=== PATIENT | male | born 1960 | race Caucasian/White ===

== ENCOUNTER 2017-04-20 17:58 | Observation (INO) | payer MEDICAID, OTHER ==
[~2017-04-20] VITALS: Ht 177.8 cm; Wt 82.2 kg
[2017-04-20 18:18] VITALS: BP 165/90; PULSE 92; RESP 18; TEMP 98.3; O2SAT 94
[2017-04-20] MEDS ORDERED: VERA80TA PO (18:23)
[2017-04-20] MEDS ORDERED: FENO50TA PO (18:28)
[2017-04-20] MEDS ORDERED: SODIUM CHLORIDE 0.9% FLUSH 10 ML FLUSH IVF PRN (18:30)
[2017-04-20 19:02] VITALS: RESP 18; O2SAT 94
--- NOTE | 2017-04-20 19:04 | PD ---
Physical Exam Narrative General: The patient is a well-developed well-nourished male in no acute distress. Head and Neck exam: Head is normocephalic atraumatic. Eyes: EOMI, pupils are equal round and reactive to light. Nose: Midline septum with pink mucous membranes Mouth: Dentition unremarkable. Moist mucus membranes. Posterior oropharynx is not erythematous. No tonsillar hypertrophy. Uvula midline. Airway patent. Neck: No palpable lymphadenopathy. No nuchal rigidity. No thyromegaly. Cardiovascular: Sinus tachycardia in the low 100s without murmurs, gallops, or rubs. No pulse deficit to the extremities and simultaneous auscultation and palpation of his radial artery. Lungs: Clear to auscultation bilaterally. No wheezes, rhonchi, or rales. Abdomen: Soft, without tenderness to palpation in all 4 quadrants of the abdomen. No guarding, rebound, or rigidity. Normal bowel sounds are audible. No tenderness on palpation of McBurney's point. Negative [place] sign. Extremities: No clubbing, cyanosis, or edema. 2+ pulses in all 4 extremities. The patient reports an area of interest, the left proximal humerus having tenderness and pain with any attempts at range of motion. There is no crepitus or deformity noted. The patient has no other pain to the upper extremity. No loss of elbow range of motion or discomfort associated with this. No wrist discomfort. The patient has intact sensation over all fingertips. Less than 3 second capillary refill. The patient on examination of the pelvis reports tenderness on palpation of the left lateral pelvis. He reports that he did fall on his left side. On examination of the left leg, the patient reports having tenderness along the left quadriceps. There is no deformity, step-off or crepitus. The patient is able to weight-bear, however he is not able to ambulate. Back: No spinous process tenderness to palpation. No costovertebral angle tenderness to palpation. Neurologic Exam: Cranial nerves 2-12 were intact on exam. Strength is 5/5 in all 4 extremities. No sensory deficits noted. Skin Exam: No rash noted. The patient has abrasions in various stages of healing. Data Data Last Documented VS Vital Signs Date Time Temp Pulse Resp B/P Pulse Ox O2 Delivery O2 Flow Rate FiO2 04/20/17 19:39 88 16 162/88 94 Nasal Cannula 2 04/20/17 18:18 98.3 Orders Humerus (Min 2vws) (04/20/17 ) Electrocardiogram (04/20/17 18:30) Ckmb (Isoenzyme) Profile (04/20/17 18:30) Complete Blood Count With Diff (04/20/17 18:30) Comprehensive Metabolic Panel (04/20/17 18:30) Prothrombin Time / Inr (Pt) (04/20/17 18:30) Act Partial Throm Time (Ptt) (04/20/17 18:30) Troponin I (04/20/17 18:30) Chest, Single Ap (04/20/17 18:30) Ecg Monitoring (04/20/17 18:30) Iv Access Insert/Monitor (04/20/17 18:30) Oximetry (04/20/17 18:30) Oxygen Administration (04/20/17 18:30) Sodium Chloride 0.9% Flush (Ns Flush) (04/20/17 18:30) Shoulder, Limited(2vws) (04/20/17 ) Ct Brain W/O Iv Contrast(Rout) (04/20/17 19:12) Pelvis, Ap Only (Routine) (04/20/17 19:12) Ct Cerv Spine W/O Contrast (04/20/17 ) Sodium Chlor 0.9% 1000 Ml Inj (Ns 1000 M (04/20/17 19:30) Thiamine Inj (Thiamine Inj) (04/20/17 19:30) CKMB (04/20/17 18:30) CKMB% (04/20/17 18:30) Ice/Cold Pack (04/20/17 20:12) Splint Or Brace Apply/Monitor (04/20/17 20:12) Blood Glucose (04/20/17 20:19) Acetamin-Hydrocod 325-5 Mg (Byron 5-325 (04/20/17 20:30) Oral Rehydration (04/20/17 20:24) Diet As Tolerated (04/20/17 20:44) Admit Order (Ed Use Only) (04/20/17 21:43) Labs Laboratory Tests Test 04/20/17 18:30 White Blood Count 9.1 TH/MM3 Red Blood Count 4.07 MIL/MM3 Hemoglobin 14.3 GM/DL Hematocrit 41.5 % Mean Corpuscular Volume 102.2 FL Mean Corpuscular Hemoglobin 35.2 PG Mean Corpuscular Hemoglobin 34.5 % Concent Red Cell Distribution Width 13.5 % Platelet Count 164 TH/MM3 Mean Platelet Volume 7.2 FL Neutrophils (%) (Auto) 61.0 % Lymphocytes (%) (Auto) 18.3 % Monocytes (%) (Auto) 19.6 % Eosinophils (%) (Auto) 0.1 % Basophils (%) (Auto) 1.0 % Neutrophils # (Auto) 5.5 TH/MM3 Lymphocytes # (Auto) 1.7 TH/MM3 Monocytes # (Auto) 1.8 TH/MM3 Eosinophils # (Auto) 0.0 TH/MM3 Basophils # (Auto) 0.1 TH/MM3 CBC Comment DIFF FINAL Differential Comment Prothrombin Time 12.3 SEC Prothromb Time International 1.1 RATIO Ratio Activated Partial 26.6 SEC Thromboplast Time Sodium Level 136 MEQ/L Potassium Level 3.8 MEQ/L Chloride Level 101 MEQ/L Carbon Dioxide Level 19.8 MEQ/L Anion Gap 15 MEQ/L Blood Urea Nitrogen 8 MG/DL Creatinine 0.71 MG/DL Estimat Glomerular Filtration 114 ML/MIN Rate Random Glucose 66 MG/DL Calcium Level 8.5 MG/DL Total Bilirubin 1.2 MG/DL Aspartate Amino Transf 123 U/L (AST/SGOT) Alanine Aminotransferase 68 U/L (ALT/SGPT) Alkaline Phosphatase 100 U/L Total Creatine Kinase 443 U/L Creatine Kinase MB 2.0 NG/ML Creatine Kinase MB % 0.5 % Troponin I LESS THAN 0.02 NG/ML Total Protein 7.6 GM/DL Albumin 3.6 GM/DL [facility] Medical Record Reviewed: Yes Supervised Visit with KAYE: No Interpretation(s) Last Impressions Pelvis X-Ray 04/20/171911 Signed Impressions: Service Date/Time: Thursday, April 20, 2017 19:20 - CONCLUSION: No definite fracture is seen for technique. Phuc Waters MD Head CT 04/20/171911 Signed Impressions: Service Date/Time: Thursday, April 20, 2017 19:42 - CONCLUSION: Unremarkable study. Phuc Waters MD Chest X-Ray 04/20/171829 Signed Impressions: Service Date/Time: Thursday, April 20, 2017 18:49 - CONCLUSION: No acute cardiopulmonary disease. Phuc Waters MD Shoulder X-Ray 04/20/17 0000 Signed Impressions: Service Date/Time: Thursday, April 20, 2017 18:37 - CONCLUSION: Left proximal humeral fracture per Phuc Waters MD Humerus X-Ray 04/20/17 0000 Signed Impressions: Service Date/Time: Thursday, April 20, 2017 18:44 - CONCLUSION: Left proximal humeral fracture. Phuc Waters MD Cervical Spine CT 04/20/17 0000 Signed Impressions: Service Date/Time: Thursday, April 20, 2017 19:42 - CONCLUSION: Slight neural foramina compromise at multiple levels and lateral recess compromise bilaterally C3-C4 without any significant thecal sac stenosis. Phuc Waters MD Narrative Course During the course of the patients emergency department visit, the patients history, examination, and differential diagnosis were reviewed with the patient. The patient had IV access obtained and blood work sent for analysis. The patient's case was checked out to me by Dr. Corona, at the conclusion of his shift. Please review his complete history and physical. The patient reports a history of falling yesterday. He reports that he was unable to get up. He reports that he has a history of prior weakness to his left upper and left lower extremity that he reports is related to atrophy, however he is unsure why he has atrophy on the left side. The patient reports that he sometimes uses a cane for stability. He reports that he had too many alcoholic beverages yesterday and fell to the ground. He reports that he found outside by the neighbor who helped him to get inside. The patient's main complaint at this time is left shoulder pain. The patient had an ECG done on arrival that shows a sinus rhythm of 87, QRS duration is 94 ms, QTC [address] segment elevation or depression, T waves are inverted in lead 3. The patients laboratory studies were reviewed and remarkable for a white count of 9.1, hemoglobin 14.3, platelets 164 with 19.6 monocytes. CMP is remarkable for CO2 of 19.8, glucose 66, AST 123, total bilirubin 1.2, CPK 443 with an MB percent is 0.5, troponin I less than 0.02, PT 12.3, INR 1.1, PTT 26.6. Regarding the patient's blood sugar of 66 on his blood work this will be rechecked. The patient is currently without symptoms. The repeat blood sugar was noted to be low at 55. The patient will be given orange shoes and crackers. The patient reports that he has not been eating today related to the fall and his left shoulder pain. The patient's blood sugar will be rechecked. The patient was provided a liter of normal saline, thiamine 100 mg IV. The patient was given Lortab 5 mg by mouth 1 for pain. Radiology studies were reviewed and remarkable for a CT scan of the brain that showed no acute abnormality. CT scan of the C-spine with degenerative changes noted, slight neural foramina compromise at multiple levels on lateral recess compromise bilaterally at C3-C4 without any significant thecal sac stenosis. Chest x-ray, pelvis x-ray showed no acute abnormality. Left shoulder x-ray, left humerus x-ray reveals a proximal left humerus fracture. The patient was placed in a sling and swath. The patient had an ice pack applied. Regarding the patient's left proximal humerus fracture he was given a mandatory follow-up to the [facility] system with orthopedic physician on-call as he reports being uninsured. Later, the patient was able to identify who his insurance was and that his primary care doctor was Dr. Angel Dunbar. Therefore the mandatory follow-up will be canceled. The patient's repeat blood sugar after eating and drinking was 87. The patient attempted to ambulate, the patient reports that he is unable to ambulate due to pain in his left quadriceps muscle. There is no deformity, step-off or crepitus. He reports having chronic problems with his left leg. The patient reports that it is worse now and he is unable to care for himself. A call was then placed out to the hospitalist service regarding admission. X-ray of the left femur reveals an intact total hip prosthesis for technique, possible bone infarcts in the distal femur or proximal tibia. No other acute abnormality. The patient will be admitted to the hospital for his inability to ambulate and for physical therapy. The patients results were discussed with the patient, including the plan of care. I explained that further testing and/ or monitoring is indicated based on the patients history, examination, and/ or laboratory findings. Therefore, I recommended admission for additional evaluation. The patient expressed understanding and was agreeable with this plan. The patient was admitted to the hospital in stable condition and sent to a bed under the care of the [facility] Hospitalist service. Physician Communication Physician Communication The patient's case was discussed with Dr. Goodwin who did agree to admit the patient for further evaluation and treatment at this time for Diagnosis Primary Impression: Fall Qualified Code: W19.XXXA - Fall, initial encounter Additional Impressions: Closed fracture of left proximal humerus Qualified Code: S42.202A - Closed fracture of proximal end of left humerus, unspecified fracture morphology, initial encounter Unable to ambulate Hypoglycemia Admitting Information Admitting Physician Requests: Observation Referrals: [facility] 3 days Patient Assistance Program 3 days Patient Instructions: General Instructions, Proximal Humerus Fracture (ED) Rhonda Ramirez MD Apr 20, 2017 19:04
[2017-04-20 19:09] LABS: AUTOMATED NEUTROPHIL # 5.5 TH/MM3 (1.8-7.7); BASOPHIL # 0.1 TH/MM3 (0-0.2); EOSINOPHIL % 0.1 % (0.0-4.0); HEMATOCRIT 41.5 % (39.0-51.0); HEMO FLAGS DIFF FINAL; LYMPH % 18.3 % (9.0-44.0); LYMPHOCYTE # 1.7 TH/MM3 (1.0-4.8); MEAN CELL VOLUME 102.2 FL (80.0-100.0); MEAN CORPUSCULAR HEMOGLOBIN 35.2 PG (27.0-34.0); MEAN CORPUSCULAR HGB CONC 34.5 % (32.0-36.0); MONO % 19.6 % (0.0-8.0); PLATELET COUNT 164 TH/MM3 (150-450); RED BLOOD COUNT 4.07 MIL/MM3 (4.50-5.90); RED CELL DISTRIBUTION WIDTH 13.5 % (11.6-17.2); WHITE BLOOD COUNT 9.1 TH/MM3 (4.0-11.0)
--- NOTE | 2017-04-20 19:13 | PD ---
HPI Chief Complaint: Pain: Acute or Chronic Time Seen by Provider: 19:03 Travel History International Travel<30 days: No Contact w/Intl Traveler<30days: No Traveled to known affect area: No History of Present Illness HPI Due to many beers" and he fell injuring his left humerus and shoulder. He states he was unable to get to his feet because he has generalized weakness after multiple orthopedic surgeries in the past. Denies any chest pain loss consciousness head injury neck injury. His only complaint is left shoulder. He arrives by EMS with a sling and swath in place and states got better after morphine was given in the field. [facility] Past Medical History Diabetes: No Hypertension: Yes Tetanus Vaccination: > 5 Years Influenza Vaccination: No Past Surgical History Appendectomy: Yes Coronary Artery Bypass Graft: Yes Social History Alcohol Use: Yes (4PACK/DAY) Tobacco Use: Yes (1/2 PPD) Substance Use: Yes (MARIJUANA) Allergies-Medications (Allergen,Severity, Reaction): Coded Allergies: No Known Allergies (Unverified , 04/20/17) Reported Meds & Prescriptions Reported Meds & Active Scripts Active Reported Tricor (Fenofibrate) 145 Mg Tab 145 Mg PO DAILY Takw with food. Verapamil (Verapamil HCl) 80 Mg Tab 80 Mg PO BID Review of Systems Except as stated in HPI: all other systems reviewed are Neg Physical Exam Narrative GENERAL: Well-developed well-nourished no apparent distress. SKIN: Focused skin assessment warm/dry. HEAD: Atraumatic. Normocephalic. EYES: Pupils equal and round. No scleral icterus. No injection or drainage. ENT: No nasal bleeding or discharge. Mucous membranes pink and moist. NECK: Trachea midline. No JVD. CARDIOVASCULAR: Regular rate and rhythm. No murmur appreciated. RESPIRATORY: No accessory muscle use. Clear to auscultation. Breath sounds equal bilaterally. GASTROINTESTINAL: Abdomen soft, non-tender, nondistended. Hepatic and splenic margins not palpable. MUSCULOSKELETAL: No midline CT or L-spine tenderness, pulse motor and sensory intact distally in all 4 extremities, there is some midshaft and distal humeral tenderness on the left. No gross deformity seen. Shoulders properly seated. NEUROLOGICAL: Awake and alert. No obvious cranial nerve deficits. Motor grossly within normal limits. Normal speech. PSYCHIATRIC: Appropriate mood and affect; insight and judgment normal. Data Data Last Documented VS Vital Signs Date Time Temp Pulse Resp B/P Pulse Ox O2 Delivery O2 Flow Rate FiO2 04/20/17 19:02 18 94 Room Air 04/20/17 18:23 99 04/20/17 18:18 98.3 165/90 Orders Humerus (Min 2vws) (04/20/17 ) Electrocardiogram (04/20/17 18:30) Ckmb (Isoenzyme) Profile (04/20/17 18:30) Complete Blood Count With Diff (04/20/17 18:30) Comprehensive Metabolic Panel (04/20/17 18:30) Prothrombin Time / Inr (Pt) (04/20/17 18:30) Act Partial Throm Time (Ptt) (04/20/17 18:30) Troponin I (04/20/17 18:30) Chest, Single Ap (04/20/17 18:30) Ecg Monitoring (04/20/17 18:30) Iv Access Insert/Monitor (04/20/17 18:30) Oximetry (04/20/17 18:30) Oxygen Administration (04/20/17 18:30) Sodium Chloride 0.9% Flush (Ns Flush) (04/20/17 18:30) Shoulder, Limited(2vws) (04/20/17 ) MDM Medical Decision Making Medical Screen Exam Complete: Yes Emergency Medical Condition: Yes Differential Diagnosis Left upper extremity strain, sprain, contusion, fracture, rhabdomyolysis. Narrative Course Patient roomed in the emergency department, laboratory and radiologic workup has been ordered. Patient was discussed with Dr. Ramirez at shift change to follow-up workup and disposition the patient appropriately. Guzman Corona MD Apr 20, 2017 19:13
[2017-04-20 19:22] LABS: APTT (PATIENT) 26.6 SEC (24.3-30.1); INTERNATIONAL NORMALIZED RATIO 1.1 RATIO; PROTHROMBIN TIME - PATIENT 12.3 SEC (9.8-11.6)
[2017-04-20 19:27] LABS: ANION GAP 15 MEQ/L (5-15); AST (GOT) 123 U/L (15-37); BICARBONATE 19.8 MEQ/L (21.0-32.0); BLOOD UREA NITROGEN 8 MG/DL (7-18); CHLORIDE 101 MEQ/L (98-107); GLOMERULAR FILTRATION RATE 114 ML/MIN (>89); POTASSIUM 3.8 MEQ/L (3.5-5.1); SODIUM (NA) 136 MEQ/L (136-145)
[2017-04-20 19:28] LABS: ALT (GPT) 68 U/L (12-78)
[2017-04-20] MEDS ORDERED: SODIUM CHLOR 0.9% 1000 ML INJ 1,000 ML IV ONE (19:30)
[2017-04-20] MEDS ORDERED: THIAMINE INJ 100 MG in SODIUM CHLORIDE 0.9% INJ 100 ML IV ONE (19:30)
[2017-04-20 19:31] LABS: ALKALINE PHOSPHATASE 100 U/L (45-117); CREATINE KINASE 443 U/L (39-308); TOTAL BILIRUBIN ADULT 1.2 MG/DL (0.2-1.0)
[2017-04-20 19:39] VITALS: BP 162/88; PULSE 88; RESP 16; O2SAT 94
--- NOTE | 2017-04-20 19:54 | RADRPT ---
EXAM DATE/TIME: 04/20/2017 18:49 [facility] COMPARISON: No previous studies available for comparison. INDICATIONS : Chest pain post fall MEDICAL HISTORY : Hypertension. SURGICAL HISTORY : CABG. ENCOUNTER: Initial ACUITY: 1 day PAIN SCORE: 9/10 LOCATION: Bilateral chest FINDINGS: The lungs are clear without infiltrate, nodule, or mass. There is no appreciable pleural effusion fo r technique. Heart and mediastinum are unremarkable. There is evidence for prior median sternotomy. CONCLUSION: No acute cardiopulmonary disease. Phuc Waters MD on April 20, 2017 at 19:53 Board Certified Radiologist. This report was verified electronically.
--- NOTE | 2017-04-20 19:54 | RADRPT ---
EXAM DATE/TIME: 04/20/2017 18:37 [facility] COMPARISON: No previous studies available for comparison. INDICATIONS : Left shoulder pain MEDICAL HISTORY : Hypertension. SURGICAL HISTORY : CABG. ENCOUNTER: Initial ACUITY: 1 day PAIN SCORE: 9/10 LOCATION: Left Shoulder FINDINGS: There is a complete fracture of the left proximal humerus underneath the surgical neck without any si gnificant angulation or displacement. There is no dislocation. CONCLUSION: Left proximal humeral fracture per Phuc Waters MD on April 20, 2017 at 19:51 Board Certified Radiologist. This report was verified electronically.
--- NOTE | 2017-04-20 19:54 | RADRPT ---
EXAM DATE/TIME: 04/20/2017 18:44 [facility] COMPARISON: No previous studies available for comparison. INDICATIONS : Left humerus pain, post fall MEDICAL HISTORY : Hypertension. SURGICAL HISTORY : CABG. ENCOUNTER: Initial ACUITY: 1 day PAIN SCORE: 10/10 LOCATION: Left upper extremity FINDINGS: There is a complete fracture of the left proximal humerus underneath the surgical neck without any si gnificant angulation or displacement. CONCLUSION: Left proximal humeral fracture. Phuc Waters MD on April 20, 2017 at 19:52 Board Certified Radiologist. This report was verified electronically.
--- NOTE | 2017-04-20 19:57 | RADRPT ---
EXAM DATE/TIME: 04/20/2017 19:42 [facility] COMPARISON: No previous studies available for comparison. INDICATIONS : Trauma, fall. RADIATION DOSE: 34.92 CTDIvol (mGy) MEDICAL HISTORY : Hypertension. SURGICAL HISTORY : CABG Appendectomy.Back and pelvic surgery. ENCOUNTER: Initial ACUITY: 1 day PAIN SCALE: 10/10 LOCATION: cranial TECHNIQUE: Multiple contiguous axial images were obtained of the head. Using automated exposure control and adj ustment of the mA and/or kV according to patient size, radiation dose was kept as low as reasonably a chievable to obtain optimal diagnostic quality images. DICOM format image data is available electro nically for review and comparison. FINDINGS: There is no evidence for intracranial hemorrhage, mass effect, mass lesions, edema, or extra-axial fl uid collections. The visualized bony structures appear intact. The ventricles are normal size for t he patient's age. There are no signs of acute infarction for technique. CONCLUSION: Unremarkable study. Phuc Waters MD on April 20, 2017 at 19:55 Board Certified Radiologist. This report was verified electronically.
--- NOTE | 2017-04-20 20:00 | RADRPT ---
EXAM DATE/TIME: 04/20/2017 19:20 [facility] COMPARISON: No previous studies available for comparison. INDICATIONS : Fall. Pelvic pain. MEDICAL HISTORY : None. SURGICAL HISTORY : None. ENCOUNTER: Initial ACUITY: 1 day PAIN SCORE: 6/10 LOCATION: Bilateral chest FINDINGS: Total hip arthroplasty is in place on left side. The femoral and acetabular components appear intact . There are no signs of loosening or fracture. No definite fractures, dislocations, lytic, or sclero tic lesions are seen. CONCLUSION: No definite fracture is seen for technique. Phuc Waters MD on April 20, 2017 at 19:58 Board Certified Radiologist. This report was verified electronically.
--- NOTE | 2017-04-20 20:05 | RADRPT ---
EXAM DATE/TIME: 04/20/2017 19:42 [facility] COMPARISON: No previous studies available for comparison. INDICATIONS : Trauma, fall. RADIATION DOSE: 20.60 CTDIvol (mGy) MEDICAL HISTORY : Hypertension. SURGICAL HISTORY : CABG Appendectomy.Back and pelvic surgery. ENCOUNTER: Initial ACUITY: 1 day PAIN SCALE: 10/10 LOCATION: neck TECHNIQUE: Volumetric scanning of the cervical spine was performed. Multiplanar reconstructions in the sagittal, coronal and oblique axial planes were performed. Using automated exposure control and adjustment o f the mA and/or kV according to patient size, radiation dose was kept as low as reasonably achievable to obtain optimal diagnostic quality images. DICOM format image data is available electronically f or review and comparison. FINDINGS: No evidence of subluxation. No definite fracture is seen for technique. C2-C3: There is no evidence for any significant compromise to the thecal sac, or the exiting nerve roots. N o appreciable thecal sac stenosis is seen. The neural foramina and lateral recess appear patent bila terally. C3-C4: Moderate degenerative changes are seen within the disc space and facets. There is moderate neural for daniel compromise on the left due to asymmetrical bulging disc and hypertrophic changes. Slight bilate ral lateral recess compromise is seen due to hypertrophic changes and bulging disc. Slight bulging di sc and hypertrophic changes are seen with indentation on the thecal sac and no significant compromise to the thecal sac. C4-C5: Moderate degenerative changes are seen within the disc space and facets. There is slight neural usman leidy compromise on the right due to asymmetrical bulging disc and hypertrophic changes. Slight bulging disc and hypertrophic changes are seen with indentation on the thecal sac and no significant comprom ise to the thecal sac. C5-C6: Moderate degenerative changes are seen within the disc space and facets. There is slight neural usman leidy compromise bilaterally due to bulging disc and hypertrophic changes. Slight bulging disc and hype rtrophic changes are seen with indentation on the thecal sac and no significant compromise to the the andrzej sac. C6-C7: Moderate degenerative changes are seen within the disc space and facets. Slight bulging disc and hype rtrophic changes are seen with indentation on the thecal sac and no significant compromise to the the andrzej sac or the exiting nerve roots. C7-T1: There is no evidence for any significant compromise to the thecal sac, or the exiting nerve roots. N o appreciable thecal sac stenosis is seen. The neural foramina and lateral recess appear patent bila terally. CONCLUSION: Slight neural foramina compromise at multiple levels and lateral recess compromise bilaterally C3-C4 without any significant thecal sac stenosis. Phuc Waters MD on April 20, 2017 at 19:59 Board Certified Radiologist. This report was verified electronically.
[2017-04-20] MEDS ORDERED: HYDR-3533 PO (20:22)
[2017-04-20] MEDS ORDERED: ACETAMINOPHEN/HYDROcodone 325 MG/5 MG TAB PO ONE (20:30)
--- NOTE | 2017-04-20 21:49 | HHI.HP ---
[facility] Unknown Admission Diagnosis Unable to ambulate after fall, left humerus fx Diagnoses: (1) Fall Diagnosis: Principal (2) Closed fracture of left proximal humerus Diagnosis: Principal (3) Gait instability Diagnosis: Principal (4) Dehydration Diagnosis: Principal (5) Hypoglycemia Diagnosis: Principal (6) Alcohol abuse Diagnosis: Principal (7) Tobacco abuse Diagnosis: Principal Travel History International Travel<30 Days: No Contact w/Intl Traveler <30 Da: No Traveled to Known Affected Are: No History of Present Illness This is a 57 year old male w/ a PMH of Alcohol Abuse, Tobacco Abuse and HTN who was brought to the ER by EMS secondary to complaints of left arm pain following fall while intoxicated. States he "had too many beers". Arrived in sling via EMS. No head injury or LOC reported. On arrival, BP 165/90, HR 92, O2 sat 94% on RA, Afebrile. CBC essentially unremarkable. BS 66. CPK 443. INR 1.1. CT Head/CT Spine with no acute findings. CXR negative. Pelvis X-ray negative for fracture. Femur X-ray with intact total hip prosthesis, possible bone infarcts and distal femur proximal tibia. Humerus X-ray left proximal humerus fracture. Patient was DC'd from the ER, however upon ambulation, patient w/ gait instability and complaints of pain. Review of Systems Except as stated in HPI: all other systems reviewed are Neg ROS: 14 point review of systems otherwise negative. Past Family Social History Past Medical History PMH: Alcohol Abuse, Tobacco Abuse and HTN Past Surgical History PAST SURGICAL HISTORY: Appendectomy, CABG Allergies: Coded Allergies: No Known Allergies (Unverified , 04/20/17) Family History PAST FAMILY HISTORY: Reviewed. No h/o DM or CAD Social History PAST SOCIAL HISTORY: Drinks daily. Smokes 1/2ppd. +Marijuana. Physical Exam Vital Signs Vital Signs Date Time Temp Pulse Resp B/P Pulse Ox O2 Delivery O2 Flow Rate FiO2 04/20/17 19:39 88 16 162/88 94 Nasal Cannula 2 04/20/17 19:02 18 94 Room Air 04/20/17 19:02 94 Room Air 04/20/17 18:23 99 18 04/20/17 18:18 98.3 92 18 165/90 94 Physical Exam PE: GENERAL: Middle-aged white male in no acute distress. HEENT: PERRLA, EOMI. No scleral icterus or conjunctival pallor. No lid lag or facial droop. CARDIOVASCULAR: Regular rate and rhythm. No obvious murmurs to auscultation. No chest tenderness to palpation. RESPIRATORY: No obvious rhonchi or wheezing. Clear to auscultation. Breath sounds equal bilaterally. GASTROINTESTINAL: Abdomen soft, non-tender, nondistended. BS normal. MUSCULOSKELETAL: Extremities without clubbing, cyanosis, or edema. No obvious deformities. LUE in sling. NEUROLOGICAL: Awake, alert and oriented x4. No focal neurologic deficits. Moving both upper and lower extremities spontaneously. Laboratory Laboratory Tests Test 04/20/17 18:30 White Blood Count 9.1 Red Blood Count 4.07 Hemoglobin 14.3 Hematocrit 41.5 Mean Corpuscular Volume 102.2 Mean Corpuscular Hemoglobin 35.2 Mean Corpuscular Hemoglobin 34.5 Concent Red Cell Distribution Width 13.5 Platelet Count 164 Mean Platelet Volume 7.2 Neutrophils (%) (Auto) 61.0 Lymphocytes (%) (Auto) 18.3 Monocytes (%) (Auto) 19.6 Eosinophils (%) (Auto) 0.1 Basophils (%) (Auto) 1.0 Neutrophils # (Auto) 5.5 Lymphocytes # (Auto) 1.7 Monocytes # (Auto) 1.8 Eosinophils # (Auto) 0.0 Basophils # (Auto) 0.1 CBC Comment DIFF FINAL Differential Comment Prothrombin Time 12.3 Prothromb Time International 1.1 Ratio Activated Partial 26.6 Thromboplast Time Sodium Level 136 Potassium Level 3.8 Chloride Level 101 Carbon Dioxide Level 19.8 Anion Gap 15 Blood Urea Nitrogen 8 Creatinine 0.71 Estimat Glomerular Filtration 114 Rate Random Glucose 66 Calcium Level 8.5 Total Bilirubin 1.2 Aspartate Amino Transf 123 (AST/SGOT) Alanine Aminotransferase 68 (ALT/SGPT) Alkaline Phosphatase 100 Total Creatine Kinase 443 Creatine Kinase MB 2.0 Creatine Kinase MB % 0.5 Troponin I LESS THAN 0.02 Total Protein 7.6 Albumin 3.6 Result Diagram: 7/16/17 1830 7/16/17 1830 Assessment and Plan Problem List: (1) Fall ICD Code: W19.XXXA Status: Acute (2) Closed fracture of left proximal humerus ICD Code: S42.202A Status: Acute (3) Gait instability ICD Code: R26.81 Status: Acute (4) Dehydration ICD Code: E86.0 Status: Acute (5) Hypoglycemia ICD Code: E16.2 Status: Acute (6) Alcohol abuse ICD Code: F10.10 Status: Acute (7) Tobacco abuse ICD Code: Z72.0 Status: Acute Assessment and Plan A/P: 1. Fall: while intoxicated, no head injury or LOC reported. CT Head/C-Spine w / no acute findings, images reviewed by me. CXR negative. 2. Left Prox Humerus Fx: c/o LUE pain following fall, Humerus X-ray w/ left proximal humerus fracture, images reviewed by me. Pt referred to Ortho as outpatient for further eval. 3. Gait Instability: upon d/c from ER, pt unable to ambulate secondary to c/o pain, no obvious injury noted. Pelvis X-ray negative for fracture, Femur X-ray w/ intact prosthesis, possible bone infarcts, images reviewed by me. Pt reports long-standing hip pain and gait instability due to previous injuries. PT for eval/tx. Analgesics if needed. 4. Dehydration: GFR 66. BUN/Creatinine normal. IVF for hydration, repeat labs in am. 5. Hypoglycemia: No h/o DM, BS 66, asymptomatic, likely secondary to long- standing alcohol abuse. 6. Alcohol Abuse: Drinks daily. High risk for withdrawal. CIWA, Seizure Precautions, MVT/Thiamine/Folate replacement. 7. Tobacco Abuse: Pt counselled. NicoDerm prn if needed. 8. DVT Prophylaxis: SCD/Teds. 9. Social work for d/c planning as needed. 10. Case discussed w/ ER physician at length. Problem Qualifiers (1) Fall: Qualified Code: W19.XXXA - Fall, initial encounter (2) Closed fracture of left proximal humerus: Qualified Code: S42.202A - Closed fracture of proximal end of left humerus, unspecified fracture morphology, initial encounter Margareth Goodwin MD Apr 20, 2017 21:49
[2017-04-20 22:00] VITALS: BP 157/100; PULSE 81; RESP 16; O2SAT 94
[2017-04-20] MEDS ORDERED: ACETAMINOPHEN 325 MG TAB PO PRN (22:00)
[2017-04-20] MEDS ORDERED: SENNOSIDES 8.6 MG TAB PO PRN (22:00)
[2017-04-20] MEDS ORDERED: SODIUM CHLORIDE 0.9% FLUSH 10 ML FLUSH IV FLUSH PRN (22:00)
[2017-04-20] MEDS ORDERED: LORazepam 1 MG TAB PO PRN (22:00)
[2017-04-20] MEDS ORDERED: LORazepam 2 MG/ML VIAL IV PUSH PRN ×4 (22:00)
[2017-04-20] MEDS ORDERED: LACTULOSE SYRUP 20 GM/30 ML CUP PO PRN (22:00)
[2017-04-20] MEDS ORDERED: HALOPERIDOL LACTATE 5 MG/ML AMP IM PRN (22:00)
[2017-04-20] MEDS ORDERED: BISACODYL 10 MG SUPP RECTAL PRN (22:00)
[2017-04-20] MEDS ORDERED: LORazepam 2 MG TAB PO PRN (22:00)
[2017-04-20] MEDS ORDERED: FLUMAZENIL 0.5 MG/5 ML VIAL IV PUSH PRN (22:00)
[2017-04-20] MEDS ORDERED: ONDANSETRON HCL 4 MG/2 ML VIAL IVP PRN (22:00)
--- NOTE | 2017-04-20 22:12 | RADRPT ---
EXAM DATE/TIME: 04/20/2017 21:52 [facility] COMPARISON: No previous studies available for comparison. INDICATIONS : Left proximal hip pain, fell MEDICAL HISTORY : Hypertension. SURGICAL HISTORY : CABG Appendectomy.Back and left hip surgery ENCOUNTER: Initial ACUITY: 1 day PAIN SCORE: 10/10 LOCATION: Left Femur FINDINGS: Total hip arthroplasty is in place. The femoral and acetabular components appear intact. There are no signs of loosening or fracture. There are areas of irregular sclerosis in distal femur and proxima l tibia may represent bone infarcts. CONCLUSION: Intact total hip prosthesis for technique possible bone infarcts in distal femur prox imal tibia. Phuc Waters MD on April 20, 2017 at 22:08 Board Certified Radiologist. This report was verified electronically.
[2017-04-21] VITALS (7 sets, daily range): BP systolic 143–179; BP diastolic 91–100; PULSE 78–90; RESP 16–20; TEMP 96.8–98.1; O2SAT 91–96
[2017-04-21] MEDS: SODIUM CHLOR 0.9% 1000 ML INJ 1,000 ML IV SCH ×4 (00:24→15:42)
[2017-04-21] MEDS: SODIUM CHLORIDE 0.9% FLUSH 10 ML FLUSH IV FLUSH SCH ×2 (07:54→21:09)
[2017-04-21] MEDS: MAGNESIUM HYDROXIDE SUSP 30 ML CUP PO PRN (07:58)
[2017-04-21] MEDS: THIAMINE HCL 100 MG TAB PO SCH (07:59)
[2017-04-21] MEDS: DOCUSATE SODIUM 50 MG/SENNA 8.6 MG TAB PO SCH ×2 (07:59→21:00)
[2017-04-21] MEDS: MULTIVITAMINS/MINERALS THERAPEUTIC TAB PO SCH (07:59)
[2017-04-21] MEDS: FOLIC ACID 1 MG TAB PO SCH (07:59)
[2017-04-21 09:19] LABS: AUTOMATED NEUTROPHIL # 4.3 TH/MM3 (1.8-7.7); BASOPHIL # 0.1 TH/MM3 (0-0.2); BASOPHIL % 0.8 % (0.0-2.0); EOSINOPHIL % 0.2 % (0.0-4.0); HEMATOCRIT 36.9 % (39.0-51.0); HEMO FLAGS DIFF FINAL; LYMPH % 17.4 % (9.0-44.0); LYMPHOCYTE # 1.2 TH/MM3 (1.0-4.8); MEAN CELL VOLUME 104.3 FL (80.0-100.0); MEAN CORPUSCULAR HGB CONC 33.5 % (32.0-36.0); NEUT % 62.6 % (16.0-70.0); PLATELET COUNT 130 TH/MM3 (150-450); RED BLOOD COUNT 3.54 MIL/MM3 (4.50-5.90); RED CELL DISTRIBUTION WIDTH 13.4 % (11.6-17.2); WHITE BLOOD COUNT 6.8 TH/MM3 (4.0-11.0)
--- NOTE | 2017-04-21 10:19 | HHI.PR ---
Subjective Remarks No benefit through time. Patient complains of severe pain and left shoulder with any movement and an inability to bear any weight on the left knee. 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 Objective Vital Signs Date Time Temp Pulse Resp B/P Pulse Ox O2 Delivery O2 Flow Rate FiO2 04/21/17 07:43 96.8 85 18 148/95 95 04/21/17 04:00 97.3 90 18 143/95 95 04/21/17 01:10 96.9 88 20 143/91 95 04/21/17 00:20 88 16 144/94 93 Nasal Cannula 2 04/20/17 22:00 81 16 157/100 94 Nasal Cannula 2 04/20/17 19:39 88 16 162/88 94 Nasal Cannula 2 04/20/17 19:02 18 94 Room Air 04/20/17 19:02 94 Room Air 04/20/17 18:23 99 18 04/20/17 18:18 98.3 92 18 165/90 94 I/O 04/20/17 04/20/17 04/20/17 04/21/17 04/21/17 04/21/17 06:59 14:59 22:59 06:59 14:59 22:59 Intake Total 1098 ml Output Total 250 ml Balance 848 ml Intake Oral 480 ml IV Total 618 ml Output Urine Total 250 ml # Bowel Movements 0 Result Diagram: 04/21/17 0831 04/20/17 1830 Objective Remarks GENERAL: NAD, A&Ox3 HEAD: Normocephalic. NECK: Supple, trachea midline. No lymphadenopathy. EYES: No scleral icterus. No injection or drainage. CARDIOVASCULAR: Regular rate and rhythm without murmurs, gallops, or rubs. RESPIRATORY: Breath sounds equal bilaterally. No accessory muscle use. GASTROINTESTINAL: Abdomen soft, non-tender, nondistended. MUSCULOSKELETAL: No cyanosis, or edema. Pain with pressure at the knee joint of the left leg. Decreased range of motion pain and left shoulder due to humerus fracture. SKIN: Warm and dry. NEURO: No focal neurological deficitis. A/P Problem List: (1) Closed fracture of left proximal humerus ICD Code: S42.202A (2) Gait instability ICD Code: R26.81 (3) Fall ICD Code: W19.XXXA (4) Tobacco abuse ICD Code: Z72.0 (5) Alcohol abuse ICD Code: F10.10 (6) Unable to ambulate ICD Code: R26.2 Assessment and Plan Assessment and Plan 57-year-old male status post fall with left knee pain in the left humerus fracture. Left knee pain No fracture on imaging thus far Patient remains unable to stand or bear weight on that knee We'll obtain MRI to evaluate for hidden fracture or soft tissue damage Left humerus fracture Upgraded brace from a sling to a shoulder immobilizer Orthopedics consult being considered Chronic left leg atrophy Gait instability Chronic Left-sided weakness Physical therapy ordered This may prove a difficult situation for patient to ambulate without use of left arm Dehydration Hypoglycemia Both of these are resolved Alcohol abuse Monitor for alcohol withdrawals Thiamine, folic acid, multivitamin CIWA Protocol Tobacco abuse NicoDerm DVT prophylaxis SCDs Problem Qualifiers (1) Closed fracture of left proximal humerus: Qualified Code: S42.202A - Closed fracture of proximal end of left humerus, unspecified fracture morphology, initial encounter (2) Fall: Qualified Code: W19.XXXA - Fall, initial encounter Rodney Knight MD Apr 21, 2017 10:19
[2017-04-21 11:14] LABS: ANION GAP 12 MEQ/L (5-15); AST (GOT) 85 U/L (15-37); BICARBONATE 20.6 MEQ/L (21.0-32.0); BLOOD UREA NITROGEN 7 MG/DL (7-18); CHLORIDE 106 MEQ/L (98-107); GLOMERULAR FILTRATION RATE 133 ML/MIN (>89); POTASSIUM 4.3 MEQ/L (3.5-5.1); SODIUM (NA) 139 MEQ/L (136-145)
[2017-04-21 11:20] LABS: ALKALINE PHOSPHATASE 86 U/L (45-117); ALT (GPT) 55 U/L (12-78); TOTAL BILIRUBIN ADULT 1.5 MG/DL (0.2-1.0)
--- NOTE | 2017-04-21 19:24 | EKG ---
Date Performed: 04/20/2017 Time Performed: 19:16:28 PTAGE: 57 years EKG: Sinus rhythm NORMAL ECG NO PREVIOUS TRACING DOCTOR: Reyes Yap Interpretating Date/Time 04/21/2017 19:22:55
[2017-04-22 00:55] VITALS: BP 130/85; PULSE 80; RESP 18; TEMP 98.2; O2SAT 96
[2017-04-22 07:29] LABS: HEMATOCRIT 35.3 % (39.0-51.0); MEAN CELL VOLUME 102.6 FL (80.0-100.0); MEAN CORPUSCULAR HEMOGLOBIN 35.4 PG (27.0-34.0); MEAN CORPUSCULAR HGB CONC 34.5 % (32.0-36.0); PLATELET COUNT 121 TH/MM3 (150-450); RED BLOOD COUNT 3.44 MIL/MM3 (4.50-5.90); RED CELL DISTRIBUTION WIDTH 13.2 % (11.6-17.2); REVIEW FLAG FINAL; WHITE BLOOD COUNT 6.6 TH/MM3 (4.0-11.0)
[2017-04-22 07:57] LABS: BICARBONATE 23.7 MEQ/L (21.0-32.0)
[2017-04-22 08:00] VITALS: BP 143/88; PULSE 83; RESP 20; TEMP 97.6; O2SAT 94
--- NOTE | 2017-04-22 09:24 | HHI.PR ---
Subjective Remarks Patient remains unable to ambulate. MRI of his left knee is pending. No new complaints other than pain and inability to ambulate. Objective Vital Signs Date Time Temp Pulse Resp B/P Pulse Ox O2 Delivery O2 Flow Rate FiO2 04/22/17 08:00 97.6 83 20 143/88 94 04/22/17 00:55 98.2 80 18 130/85 96 04/21/17 20:10 98.1 83 18 158/98 96 04/21/17 15:43 97.6 78 18 165/100 94 04/21/17 10:45 97.5 78 18 179/94 91 I/O 04/21/17 04/21/17 04/21/17 04/22/17 04/22/17 04/22/17 07:00 15:00 23:00 07:00 15:00 23:00 Intake Total 1098 ml 720 ml 1105 ml 1547 ml Output Total 250 ml 900 ml 900 ml Balance 848 ml -180 ml 1105 ml 647 ml Intake Oral 480 ml 720 ml 240 ml 240 ml IV Total 618 ml 865 ml 1307 ml Output Urine Total 250 ml 900 ml 900 ml # Voids 5 1 # Bowel Movements 0 0 0 0 Result Diagram: 04/22/1771204/22/17712 Objective Remarks GENERAL: NAD, A&Ox3 HEAD: Normocephalic. NECK: Supple, trachea midline. No lymphadenopathy. EYES: No scleral icterus. No injection or drainage. CARDIOVASCULAR: Regular rate and rhythm without murmurs, gallops, or rubs. RESPIRATORY: Breath sounds equal bilaterally. No accessory muscle use. GASTROINTESTINAL: Abdomen soft, non-tender, nondistended. MUSCULOSKELETAL: No cyanosis, or edema. Pain with pressure at the knee joint of the left leg. Decreased range of motion pain and left shoulder due to humerus fracture. SKIN: Warm and dry. NEURO: No focal neurological deficitis. A/P Problem List: (1) Closed fracture of left proximal humerus ICD Code: S42.202A (2) Gait instability ICD Code: R26.81 (3) Fall ICD Code: W19.XXXA (4) Tobacco abuse ICD Code: Z72.0 (5) Alcohol abuse ICD Code: F10.10 (6) Unable to ambulate ICD Code: R26.2 Assessment and Plan Assessment and Plan 57-year-old male status post fall with left knee pain in the left humerus fracture. MRI of left knee is pending. Continue pain treatment. Continue physical therapy. The patient is unable to ambulate he may need a form of rehabilitation services at a care facility. Left knee pain No fracture on imaging thus far Patient remains unable to stand or bear weight on that knee We'll obtain MRI to evaluate for hidden fracture or soft tissue damage Left humerus fracture Upgraded brace from a sling to a shoulder immobilizer Orthopedics consult being considered Chronic left leg atrophy Gait instability Chronic Left-sided weakness Physical therapy ordered This may prove a difficult situation for patient to ambulate without use of left arm Dehydration Hypoglycemia Both of these are resolved Alcohol abuse Monitor for alcohol withdrawals Thiamine, folic acid, multivitamin CIWA Protocol Tobacco abuse NicoDerm DVT prophylaxis SCDs Problem Qualifiers (1) Closed fracture of left proximal humerus: Qualified Code: S42.202A - Closed fracture of proximal end of left humerus, unspecified fracture morphology, initial encounter (2) Fall: Qualified Code: W19.XXXA - Fall, initial encounter Rodney Knight MD Apr 22, 2017 9:23 am
[2017-04-22] MEDS: MULTIVITAMINS/MINERALS THERAPEUTIC TAB PO SCH (09:50)
[2017-04-22] MEDS: FOLIC ACID 1 MG TAB PO SCH (09:51)
[2017-04-22] MEDS: THIAMINE HCL 100 MG TAB PO SCH (09:51)
[2017-04-22] MEDS: DOCUSATE SODIUM 50 MG/SENNA 8.6 MG TAB PO SCH ×2 (09:51→20:39)
[2017-04-22] MEDS: SODIUM CHLORIDE 0.9% FLUSH 10 ML FLUSH IV FLUSH SCH ×2 (09:53→20:39)
[2017-04-22 12:00] VITALS: BP 121/72; PULSE 81; RESP 16; TEMP 97.2; O2SAT 97
[2017-04-22] MEDS: SODIUM CHLOR 0.9% 1000 ML INJ 1,000 ML IV SCH ×2 (12:15→20:39)
[2017-04-22] MEDS: HYDROmorphone HCL PF 1 MG/ML VIAL IV PUSH PRN ×2 (13:54→19:32)
[2017-04-22 16:00] VITALS: BP 147/86; PULSE 73; RESP 16; TEMP 98.1; O2SAT 93
[2017-04-22 19:36] VITALS: BP 138/80; PULSE 84; RESP 19; TEMP 98.3; O2SAT 95
--- NOTE | 2017-04-22 23:21 | RADRPT ---
EXAM DATE/TIME: 04/22/2017 19:57 [facility] COMPARISON: No previous studies available for comparison. INDICATIONS : Trauma. Pain. MEDICAL HISTORY : Hypertension. Hypercholesterolemia. SURGICAL HISTORY : Appendectomy. CABG Fusion, lumbar. Left hip. ENCOUNTER: Initial ACUITY: 3 day PAIN SCORE: 4/10 LOCATION: Left knee TECHNIQUE: Multiplanar, multisequence MRI examination was performed without contrast. FINDINGS: CRUCIATE LIGAMENTS: ACL and PCL are intact. MENISCI: Medial and lateral menisci are intact. COLLATERAL LIGAMENTS: MCL and LCL complexes are intact. BONE/CARTILAGE: There is evidence of either bone infarcts or enchondromas in the distal reamer and proximal tibia. Ot herwise, there is normal signal within the bone marrow of the distal femur and tibia. The patella is within normal limits. MISCELLANEOUS: No evidence of joint effusion. There is a small Wells's cyst in the popliteal fossa. CONCLUSION: 1. Findings of either bone infarct or enchondromas are noted in the distal tibia and proximal fibula. 2. Small Wells's cyst the popliteal fossa. Avinash Driver MD on April 22, 2017 at 23:17 Board Certified Radiologist. This report was verified electronically.
[2017-04-23 00:10] VITALS: BP 150/86; PULSE 77; RESP 19; TEMP 98.8; O2SAT 94
[2017-04-23 04:15] VITALS: BP 157/87; PULSE 87; RESP 18; TEMP 98.9; O2SAT 94
[2017-04-23 07:39] VITALS: BP 139/88; PULSE 75; RESP 19; TEMP 98.4; O2SAT 96
[2017-04-23] MEDS: DOCUSATE SODIUM 50 MG/SENNA 8.6 MG TAB PO SCH ×2 (08:38→19:42)
[2017-04-23] MEDS: FOLIC ACID 1 MG TAB PO SCH (08:38)
[2017-04-23] MEDS: THIAMINE HCL 100 MG TAB PO SCH (08:38)
[2017-04-23] MEDS: MULTIVITAMINS/MINERALS THERAPEUTIC TAB PO SCH (08:38)
[2017-04-23] MEDS: SODIUM CHLOR 0.9% 1000 ML INJ 1,000 ML IV SCH ×2 (08:38→19:46)
[2017-04-23] MEDS: SODIUM CHLORIDE 0.9% FLUSH 10 ML FLUSH IV FLUSH SCH ×2 (08:38→19:46)
--- NOTE | 2017-04-23 11:01 | HHI.PR ---
Subjective Remarks Able to move out of bed into chair today. Multiple personality assistance needed in order to move. MRI shows no fractures of his left knee. Humerus alignment is present without gross deformity. Pain is still inhibiting patient' s ability to function as well as his previous left-sided deficits from nerve damage. Objective Vital Signs Date Time Temp Pulse Resp B/P Pulse Ox O2 Delivery O2 Flow Rate FiO2 04/23/17 07:39 98.4 75 19 139/88 96 04/23/17 04:15 98.9 87 18 157/87 94 04/23/17 00:10 98.8 77 19 150/86 94 04/22/17 19:36 98.3 84 19 138/80 95 04/22/17 16:00 98.1 73 16 147/86 93 04/22/17 12:00 97.2 81 16 121/72 97 I/O 04/22/17 04/22/17 04/22/17 04/23/17 04/23/17 04/23/17 07:00 15:00 23:00 07:00 15:00 23:00 Intake Total 1547 ml 240 ml 1684 ml 1344 ml Output Total 900 ml 355 ml 250 ml 600 ml Balance 647 ml -115 ml 1434 ml 744 ml Intake Oral 240 ml 240 ml 240 ml 480 ml IV Total 1307 ml 1444 ml 864 ml Output Urine Total 900 ml 355 ml 250 ml 600 ml # Bowel Movements 0 0 0 0 Result Diagram: 04/22/1771204/22/17712 Objective Remarks GENERAL: NAD, A&Ox3 HEAD: Normocephalic. NECK: Supple, trachea midline. No lymphadenopathy. EYES: No scleral icterus. No injection or drainage. CARDIOVASCULAR: Regular rate and rhythm without murmurs, gallops, or rubs. RESPIRATORY: Breath sounds equal bilaterally. No accessory muscle use. GASTROINTESTINAL: Abdomen soft, non-tender, nondistended. MUSCULOSKELETAL: No cyanosis, or edema. Pain with pressure at the knee joint of the left leg. Decreased range of motion pain and left shoulder due to humerus fracture. SKIN: Warm and dry. NEURO: No focal neurological deficitis. A/P Problem List: (1) Closed fracture of left proximal humerus ICD Code: S42.202A (2) Gait instability ICD Code: R26.81 (3) Fall ICD Code: W19.XXXA (4) Tobacco abuse ICD Code: Z72.0 (5) Alcohol abuse ICD Code: F10.10 (6) Unable to ambulate ICD Code: R26.2 Assessment and Plan Assessment and Plan 57-year-old male status post fall with left knee pain in the left humerus fracture. MRI of left knee shows no acute fractures. Pain medications increased. Continue physical therapy. Patient still ambulating poorly. Left knee pain No fracture on imaging thus far Patient remains unable to stand or bear weight on that knee We'll obtain MRI to evaluate for hidden fracture or soft tissue damage Left humerus fracture Upgraded brace from a sling to a shoulder immobilizer Orthopedics consult being considered Chronic left leg atrophy Gait instability Chronic Left-sided weakness Physical therapy ordered This may prove a difficult situation for patient to ambulate without use of left arm Dehydration Hypoglycemia Both of these are resolved Alcohol abuse Monitor for alcohol withdrawals Thiamine, folic acid, multivitamin CIWA Protocol Tobacco abuse NicoDerm DVT prophylaxis SCDs Problem Qualifiers (1) Closed fracture of left proximal humerus: Qualified Code: S42.202A - Closed fracture of proximal end of left humerus, unspecified fracture morphology, initial encounter (2) Fall: Qualified Code: W19.XXXA - Fall, initial encounter Rodney Knight MD Apr 23, 2017 11:01 am
[2017-04-23 11:41] VITALS: BP 123/76; PULSE 79; RESP 19; TEMP 97.1; O2SAT 95
[2017-04-23 15:55] VITALS: BP 141/83; PULSE 79; RESP 19; TEMP 96.1; O2SAT 96
[2017-04-23 20:20] VITALS: BP 129/81; PULSE 80; RESP 17; TEMP 99.2; O2SAT 97
[2017-04-24 00:20] VITALS: BP 142/78; PULSE 82; RESP 18; TEMP 99.6; O2SAT 97
[2017-04-24] MEDS: SODIUM CHLOR 0.9% 1000 ML INJ 1,000 ML IV SCH ×3 (03:13→21:59)
[2017-04-24 04:04] VITALS: BP 159/89; PULSE 80; RESP 18; TEMP 98.5; O2SAT 96
[2017-04-24 07:43] VITALS: BP 126/76; PULSE 77; RESP 19; TEMP 98; O2SAT 94
[2017-04-24] MEDS: FOLIC ACID 1 MG TAB PO SCH (08:11)
[2017-04-24] MEDS: THIAMINE HCL 100 MG TAB PO SCH (08:11)
[2017-04-24] MEDS: DOCUSATE SODIUM 50 MG/SENNA 8.6 MG TAB PO SCH ×2 (08:11→22:22)
[2017-04-24] MEDS: MULTIVITAMINS/MINERALS THERAPEUTIC TAB PO SCH (08:11)
[2017-04-24] MEDS: SODIUM CHLORIDE 0.9% FLUSH 10 ML FLUSH IV FLUSH SCH ×2 (08:14→22:22)
[2017-04-24 11:58] VITALS: BP 112/78; PULSE 90; RESP 16; TEMP 97.5; O2SAT 95
--- NOTE | 2017-04-24 14:30 | HHI.PR ---
Subjective Remarks Pain and difficulty ambulating remains. Patient will need retirement facility at discharge. I did support at his left upper arm has benefited his pain. Objective Vital Signs Date Time Temp Pulse Resp B/P Pulse Ox O2 Delivery O2 Flow Rate FiO2 04/24/17 11:58 97.5 90 16 112/78 95 04/24/17 07:43 98.0 77 19 126/76 94 04/24/17 04:04 98.5 80 18 159/89 96 04/24/17 00:20 99.6 82 18 142/78 97 04/23/17 20:20 99.2 80 17 129/81 97 04/23/17 15:55 96.1 79 19 141/83 96 I/O 04/23/17 04/23/17 04/23/17 04/24/17 04/24/17 04/24/17 07:00 15:00 23:00 07:00 15:00 23:00 Intake Total 1344 ml 480 ml 240 ml 240 ml Output Total 600 ml 375 ml 800 ml Balance 744 ml 480 ml -135 ml -560 ml Intake Oral 480 ml 480 ml 240 ml 240 ml IV Total 864 ml Output Urine Total 600 ml 375 ml 800 ml # Voids 4 # Bowel Movements 0 0 0 0 Result Diagram: 04/22/1771204/22/17712 Objective Remarks GENERAL: NAD, A&Ox3 HEAD: Normocephalic. NECK: Supple, trachea midline. No lymphadenopathy. EYES: No scleral icterus. No injection or drainage. CARDIOVASCULAR: Regular rate and rhythm without murmurs, gallops, or rubs. RESPIRATORY: Breath sounds equal bilaterally. No accessory muscle use. GASTROINTESTINAL: Abdomen soft, non-tender, nondistended. MUSCULOSKELETAL: No cyanosis, or edema. Pain with pressure at the knee joint of the left leg. Decreased range of motion pain and left shoulder due to humerus fracture. SKIN: Warm and dry. NEURO: No focal neurological deficitis. A/P Problem List: (1) Closed fracture of left proximal humerus ICD Code: S42.202A (2) Gait instability ICD Code: R26.81 (3) Fall ICD Code: W19.XXXA (4) Tobacco abuse ICD Code: Z72.0 (5) Alcohol abuse ICD Code: F10.10 (6) Unable to ambulate ICD Code: R26.2 Assessment and Plan Assessment and Plan 57-year-old male status post fall with left knee pain in the left humerus fracture. MRI of left knee shows no acute fractures. Pain medications increased. Continue physical therapy. Plan for discharge to retirement facility once arrangements are made. Left knee pain No fracture on imaging thus far Patient remains unable to stand or bear weight on that knee We'll obtain MRI to evaluate for hidden fracture or soft tissue damage Left humerus fracture Upgraded brace from a sling to a shoulder immobilizer Orthopedics consult being considered Chronic left leg atrophy Gait instability Chronic Left-sided weakness Physical therapy ordered This may prove a difficult situation for patient to ambulate without use of left arm Dehydration Hypoglycemia Both of these are resolved Alcohol abuse Monitor for alcohol withdrawals Thiamine, folic acid, multivitamin CIWA Protocol Tobacco abuse NicoDerm DVT prophylaxis SCDs Discharge planning Discharge to retirement facility planned Problem Qualifiers (1) Closed fracture of left proximal humerus: Qualified Code: S42.202A - Closed fracture of proximal end of left humerus, unspecified fracture morphology, initial encounter (2) Fall: Qualified Code: W19.XXXA - Fall, initial encounter Rodney Knight MD Apr 24, 2017 14:30
[2017-04-24 15:41] VITALS: BP 133/78; PULSE 82; RESP 16; TEMP 98.4; O2SAT 95
[2017-04-24 20:15] VITALS: BP 154/85; PULSE 85; RESP 18; TEMP 99.5; O2SAT 96
[2017-04-24] MEDS: MAGNESIUM HYDROXIDE SUSP 30 ML CUP PO PRN (22:21)
[2017-04-25 00:15] VITALS: BP 138/84; PULSE 80; RESP 18; TEMP 99; O2SAT 96
[2017-04-25 04:30] VITALS: BP 129/81; PULSE 82; RESP 18; TEMP 99.2; O2SAT 96
[2017-04-25 07:37] VITALS: BP 132/86; PULSE 85; RESP 19; TEMP 98.9; O2SAT 96
[2017-04-25] MEDS: MULTIVITAMINS/MINERALS THERAPEUTIC TAB PO SCH (08:30)
[2017-04-25] MEDS: THIAMINE HCL 100 MG TAB PO SCH (08:30)
[2017-04-25] MEDS: DOCUSATE SODIUM 50 MG/SENNA 8.6 MG TAB PO SCH (08:30)
[2017-04-25] MEDS: FOLIC ACID 1 MG TAB PO SCH (08:31)
[2017-04-25] MEDS: SODIUM CHLORIDE 0.9% FLUSH 10 ML FLUSH IV FLUSH SCH (08:31)
[2017-04-25] MEDS ORDERED: OXYC-392 PO (10:40)
[2017-04-25] MEDS ORDERED: SENN8.6T15 PO (10:40)
[2017-04-25] MEDS ORDERED: COLA100C PO (10:40)
[2017-04-25] MEDS: SODIUM CHLOR 0.9% 1000 ML INJ 1,000 ML IV SCH (11:30)
[2017-04-25 11:42] VITALS: BP 122/78; PULSE 93; RESP 19; TEMP 98.2; O2SAT 98
--- NOTE | 2017-04-25 14:01 | HHI.DS ---
Discharge Summary Admission Date Apr 20, 2017 at 9:44 pm Discharge Date: Apr 25, 2017 Admitting Diagnosis Unable to ambulate after fall, left humerus fx (1) Fall ICD Code: W19.XXXA Diagnosis: Principal (2) Closed fracture of left proximal humerus ICD Code: S42.202A Diagnosis: Principal (3) Gait instability ICD Code: R26.81 Diagnosis: Principal (4) Dehydration ICD Code: E86.0 Diagnosis: Secondary (5) Hypoglycemia ICD Code: E16.2 Diagnosis: Secondary (6) Alcohol abuse ICD Code: F10.10 Diagnosis: Secondary (7) Tobacco abuse ICD Code: Z72.0 Diagnosis: Secondary Procedures None Brief History - From Admission This is a 57 year old male w/ a PMH of Alcohol Abuse, Tobacco Abuse and HTN who was brought to the ER by EMS secondary to complaints of left arm pain following fall while intoxicated. States he "had too many beers". Arrived in sling via EMS. No head injury or LOC reported. On arrival, BP 165/90, HR 92, O2 sat 94% on RA, Afebrile. CBC essentially unremarkable. BS 66. CPK 443. INR 1.1. CT Head/CT Spine with no acute findings. CXR negative. Pelvis X-ray negative for fracture. Femur X-ray with intact total hip prosthesis, possible bone infarcts and distal femur proximal tibia. Humerus X-ray left proximal humerus fracture. Patient was DC'd from the ER, however upon ambulation, patient w/ gait instability and complaints of pain. CBC/BMP: 04/22/17 0713 04/22/17 0713 Hospital Course Mr. Sanchez is a 57 -year-old male. He was admitted secondary to inability to ambulate after fall. It was found that he has a left humerus fracture. No displacements of surgery not needed. He also has significant left knee pain but no fractures present at that place. Due to spinal injuries he suffers with atrophy of the left side at baseline and this is probably accentuating the pain and injury status post fall. Physical therapy was attempted here patient is slowly recovering and will need a fdc facility at discharge. He is medically stable for discharge today to a fdc facility. Pt Condition on Discharge: Stable Discharge Disposition: Discharge to SNF Discharge Time: > 30 minutes Discharge Instructions DIET: Follow Instructions for: As Tolerated, No Restrictions Activities you can perform: Regular-No Restrictions Follow up Referrals: Orthopedics - 2 Weeks PCP Follow-up - 2 Weeks New Medications: Docusate Sodium (Colace) 100 Mg Capsule 100 MG PO BID Constipation #30 TAB Oxycodone (Oxycodone) 5 Mg Tab 15 MG PO Q4H PRN Pain 7 to 10 #90 TAB Sennosides (Senna Lax) 8.6 Mg Tab 17.2 MG PO Q12H PRN MODERATE - SEVERE CONSTIPATION #30 TAB Continued Medications: Fenofibrate (Tricor) 145 Mg Tab 145 MG PO DAILY Takw with food. #30 Ref 0 TAB Verapamil (Verapamil) 80 Mg Tab 80 MG PO BID #60 Ref 0 TAB Rodney Knight MD Apr 25, 2017 2:01 pm
[2017-04-25 15:39] VITALS: BP 121/77; PULSE 91; RESP 19; TEMP 97.3; O2SAT 97
== END 2017-04-25 17:07 ==
LOC: NEPE 17:58 → NEDA 21:44 → N06A 04-21 00:35
PROVIDERS: ADMIT Internal Medicine; ATTEND Hospitalist
DX: S42.202A Unspecified fracture of upper end of left humerus, initial encounter for closed fracture (principal); R26.81 Unsteadiness on feet; E86.0 Dehydration; E16.2 Hypoglycemia, unspecified; R00.0 Tachycardia, unspecified; M25.562 Pain in left knee; M21.372 Foot drop, left foot; F10.10 Alcohol abuse, uncomplicated; I10 Essential (primary) hypertension; F12.90 Cannabis use, unspecified, uncomplicated; F17.200 Nicotine dependence, unspecified, uncomplicated; Z95.1 Presence of aortocoronary bypass graft; W19.XXXA Unspecified fall, initial encounter
CPT/HCPCS: 29240; 70450; 71010; 72125; 72170; 73030; 73060; 73552; 73721; 80048; 80053; 82550; 82552; 82948; 84484; 85025; 85027; 85610; 85730; 93005; 96374; 97110; 97116; 97162; 97530; 99285; G0378; G8987; G8988; J1170; J2405; J3411; J7030